=== PATIENT | female | born 1935 | race Caucasian/White ===

== ENCOUNTER 2017-06-26 12:55 | Inpatient (IN) | payer OTHER ==
[~2017-06-26] VITALS: Ht 167.6 cm; Wt 91.9 kg
[~2017-06-26 12:55] MED LIST: ALPR.25; ASPI325 PO; CLOB.05TC TP; CONEST.625 PO; DICL50ER PO; HYDACE5 PO; LEVSOD200; LOVA40 PO; NAPR220 PO; OXYACE5T PO; PRAM.125 PO
[2017-06-26 13:40] LABS: BASOPHILS ABSOLUTE AUTO 0.01 K/mm3 (0.00-0.23); BASOPHILS PERCENT AUTO 0 % (0-2); EOSINOPHILS ABSOLUTE AUTO 0.05 K/mm3 (0.00-0.68); EOSINOPHILS PERCENT AUTO 1 % (0-6); Hematocrit 37.4 % (33.0-51.0); Hemoglobin 12.7 g/dL (11.5-16.0); IMMATURE GRAN ABSOLUTE AUTO 0.03 K/mm3 (0.00-0.10); IMMATURE GRAN PERCENT AUTO 0 % (0-1); LYMPHOCYTES ABSOLUTE AUTO 0.98 K/mm3 (0.84-5.20); LYMPHOCYTES PERCENT AUTO 11 % (21-46); MONOCYTES ABSOLUTE AUTO 0.35 K/mm3 (0.16-1.47); MONOCYTES PERCENT AUTO 4 % (4-13); Mean Corpuscular HGB 29.2 pg (26.0-34.0); Mean Corpuscular Volume 86 fL (80-100); Mean Platelet Volume 9.9 fL (9.1-12.4); NEUTROPHILS ABSOLUTE AUTO 7.26 K/mm3 (1.96-9.15); NEUTROPHILS PERCENT AUTO 84 % (41-73); Platelet Count 294 K/mm3 (150-400); RDW Coefficient Variation 15.2 % (11.7-14.2); RDW Standard Deviation 48.2 fL (35.1-46.3); Red Blood Cell Count 4.35 M/mm3 (3.80-5.20); White Blood Cell Count 8.68 K/mm3 (4.00-11.30)
[2017-06-26] MEDS ORDERED: LEVSOD100 PO (13:47)
[2017-06-26] MEDS ORDERED: GABA300 PO (13:47)
[2017-06-26] MEDS ORDERED: SIMV40 PO (13:47)
[2017-06-26] MEDS ORDERED: ASPI81CH PO (13:47)
[2017-06-26] MEDS ORDERED: Omeprazole20 M1 PO (13:47)
[2017-06-26] MEDS ORDERED: CHOL10002 PO (13:47)
[2017-06-26] MEDS ORDERED: VITAMIN B122500 MCG PO (13:48)
[2017-06-26] MEDS ORDERED: ONE DAILY COMP1 EACH PO (13:48)
[2017-06-26] MEDS ORDERED: Lasix40 MG PO (13:49)
[2017-06-26 13:50] LABS: Source, Urine Clean Catch
[2017-06-26] MEDS ORDERED: NABU500 PO (13:50)
[2017-06-26] MEDS ORDERED: CYCL10 PO (13:50)
[2017-06-26] MEDS ORDERED: BENZ100A (13:51)
[2017-06-26] MEDS ORDERED: ALBU90OI6 (13:51)
[2017-06-26] MEDS ORDERED: PRED10 (13:52)
[2017-06-26] MEDS ORDERED: Augmentin 875-1 EACH PO (13:52)
[2017-06-26 13:59] LABS: Alanine Aminotransfer (ALT/SGP 24 U/L (12-78); Albumin, Blood 3.4 g/dL (3.4-5.0); Alk Phos 90 U/L (50-136); Anion Gap 6 mmol/L (6-16); Aspartate Aminotrans (AST/SGOT 24 U/L (12-37); Bilirubin, Total 0.6 mg/dL (0.1-1.0); Blood Urea Nitrogen 13 mg/dL (8-24); CO2, Blood 31 mmol/L (21-32); Calcium, Blood 8.4 mg/dL (8.5-10.1); Chloride, Blood 107 mmol/L (98-108); Creatinine, Blood 0.76 mg/dL (0.40-1.00); Globulin, Blood 3.3 g/dL (2.2-4.0); Glomerular Filtration Rate >60 (60-); Glucose, Blood 107 mg/dL (70-99); Potassium, Blood 2.9 mmol/L (3.5-5.5); Sodium, Blood 144 mmol/L (136-145); Total Protein, Blood 6.7 g/dL (6.4-8.2)
[2017-06-26 14:07] LABS: Appearance, Urine Clear (Clear); Bilirubin, Urine Neg (Neg); Blood, Urine Neg (Neg); Color, Urine Yellow (P-Yellow); Glucose Qualitative, Urine Neg (Neg); Ketones, Urine Neg (Neg); Leukocyte Esterase, Urine Neg (Neg); Nitrite, Urine Neg (Neg); Protein, Urine Neg (Neg); Urobilinogen, Urine 1+ (Normal)
[2017-06-26] MEDS ORDERED: OXYB5 PO (14:07)
[2017-06-26 14:15] LABS: Troponin I <0.015 ng/mL (0.000-0.040)
[2017-06-26 19:25] LABS: Calcium, Ionized (POC) 1.04 mmol/L (1.10-1.46); Chloride (POC) 105 mmol/L (98-108); Creatinine (POC) 0.7 mg/dL (0.6-1.0); Glucose (ISTAT POC) 117 mg/dL (70-99); Hemoglobin (POC) 12.6 g/dL (12.0-16.0); Potassium (POC) 3.4 mmol/L (3.5-5.5); Sodium (POC) 142 mmol/L (135-148); Total CO2 (POC) 28 mmol/L (21-32)
[2017-06-27] MEDS ORDERED: ACET500 PO (02:41)
[2017-06-27] MEDS ORDERED: DIPH50 PO (02:42)
[2017-06-27] MEDS ORDERED: BISA5EC PO (02:44)
[2017-06-27] MEDS ORDERED: Xanax0.5 MG PO (02:50)
[2017-06-27 04:48] LABS: Hematocrit 30.5 % (33.0-51.0); Hemoglobin 10.2 g/dL (11.5-16.0)
[2017-06-27 05:09] LABS: Anion Gap 7 mmol/L (6-16); Blood Urea Nitrogen 15 mg/dL (8-24); Bun/Creatinine Ratio 20.6 (12.0-20.0); CO2, Blood 29 mmol/L (21-32); Calcium, Blood 7.7 mg/dL (8.5-10.1); Chloride, Blood 109 mmol/L (98-108); Creatinine, Blood 0.73 mg/dL (0.40-1.00); Glomerular Filtration Rate >60 (60-); Glucose, Blood 85 mg/dL (70-99); Magnesium, Blood 1.8 mg/dL (1.6-2.4); Potassium, Blood 3.2 mmol/L (3.5-5.5); Sodium, Blood 145 mmol/L (136-145)
[2017-06-27 22:11] LABS: Influenza A Negative (NEGATIVE); Influenza B Negative (NEGATIVE)
[2017-06-28] MEDS ORDERED: CYCL10 PO (14:03)
[2017-06-28] MEDS ORDERED: LEVFLO500 PO (14:05)
[2017-06-28] MEDS ORDERED: POTCHL20ER PO (14:06)
[2017-06-28] MEDS ORDERED: OXYC5 PO (14:07)
[2017-06-28] MEDS ORDERED: ACET325 PO (14:14)
[2018-02-15] MEDS ORDERED: SIMV40 PO (10:56)
[2018-02-15] MEDS ORDERED: ALPR.5 PO (10:56)
[2018-02-15] MEDS ORDERED: Nitrostat0.4 MG SL (10:57)
[2018-02-15] MEDS ORDERED: OXYB5 PO (10:57)
[2018-02-15] MEDS ORDERED: Aspirin EC81 MG PO (10:58)
[2018-02-15] MEDS ORDERED: VITAMIN B125000 MCG PO (10:58)
[2018-02-15] MEDS ORDERED: Flonase 0.05% N16 GM (10:59)
[2018-02-15] MEDS ORDERED: HYDPAM50 PO (11:00)
== END 2017-06-28 15:38 | disposition home or self-care (01) | DRG 556 ==
LOC: ER 12:55 → MEDS 19:01 → ENPENDDIS 06-28 13:58 → MEDS 06-28 15:38
PROVIDERS: Emergency Medicine; Family Medicine; Internal Medicine Endocrinology, Diabetes & Metabolism; Physician Assistant
DX: M79.81 Nontraumatic hematoma of soft tissue (principal); I35.0 Nonrheumatic aortic (valve) stenosis; E03.9 Hypothyroidism, unspecified; E78.00 Pure hypercholesterolemia, unspecified; E87.6 Hypokalemia; J45.909 Unspecified asthma, uncomplicated; J06.9 Acute upper respiratory infection, unspecified; T50.2X5A Adverse effect of carbonic-anhydrase inhibitors, benzothiadiazides and other diuretics, initial encounter; Z79.82 Long term (current) use of aspirin
CPT/HCPCS: 36415; 71275; 74174; 76705; 80047; 80048; 80053; 81003; 83690; 83735; 84100; 84484; 85014; 85018; 85025; 87804; 93005; 93010; 94640; 94760; 96365; 96366; 96375; 96376; 99285; C9113; J1170; J2001; J2405; J3480; J7050; Q9967

== ENCOUNTER → 2017-10-12 | Outpatient (CLI) | payer OTHER ==
[~2017-10-12] MED LIST changes: +ACET325 PO; +ACET500 PO; +ALBU90OI6; +ASPI81CH PO; +Augmentin 875-1 EACH PO; +BENZ100A; +BISA5EC PO; +CHOL10002 PO; +CYCL10 PO; +DIPH50 PO; +GABA300 PO; +LEVFLO500 PO; +LEVSOD100 PO; +Lasix40 MG PO; +NABU500 PO; +ONE DAILY COMP1 EACH PO; +OXYB5 PO; +OXYC5 PO; +Omeprazole20 M1 PO; +POTCHL20ER PO; +PRED10; +SIMV40 PO; +VITAMIN B122500 MCG PO; +Xanax0.5 MG PO
== END | disposition home or self-care (01) ==
LOC: LAB EV 16:27 → LAB SHORT 16:27
DX: R19.00 Intra-abdominal and pelvic swelling, mass and lump, unspecified site (principal); R30.0 Dysuria
CPT/HCPCS: 87086

== ENCOUNTER 2017-11-25 06:04 | Emergency (ER) | payer OTHER ==
[~2017-11-25] VITALS: Ht 170.2 cm; Wt 86.2 kg
[2017-11-25] MEDS ORDERED: FURO20 PO (06:41)
[2017-11-25] MEDS ORDERED: Omeprazole20 M1 PO (06:42)
[2017-11-25] MEDS ORDERED: Fludrocortison0.1 MG PO (06:43)
[2017-11-25 07:02] LABS: BASOPHILS ABSOLUTE AUTO 0.04 K/mm3 (0.00-0.23); BASOPHILS PERCENT AUTO 1 % (0-2); EOSINOPHILS ABSOLUTE AUTO 0.28 K/mm3 (0.00-0.68); EOSINOPHILS PERCENT AUTO 5 % (0-6); Hematocrit 34.6 % (33.0-51.0); Hemoglobin 11.5 g/dL (11.5-16.0); IMMATURE GRAN ABSOLUTE AUTO 0.01 K/mm3 (0.00-0.10); IMMATURE GRAN PERCENT AUTO 0 % (0-1); LYMPHOCYTES ABSOLUTE AUTO 1.51 K/mm3 (0.84-5.20); LYMPHOCYTES PERCENT AUTO 28 % (21-46); MONOCYTES ABSOLUTE AUTO 0.67 K/mm3 (0.16-1.47); MONOCYTES PERCENT AUTO 13 % (4-13); Mean Corpuscular HGB 30.1 pg (26.0-34.0); Mean Corpuscular HGB Conc 33.2 g/dL (31.5-36.5); Mean Corpuscular Volume 91 fL (80-100); Mean Platelet Volume 10.6 fL (9.1-12.4); NEUTROPHILS ABSOLUTE AUTO 2.82 K/mm3 (1.96-9.15); NEUTROPHILS PERCENT AUTO 53 % (41-73); Platelet Count 174 K/mm3 (150-400); RDW Coefficient Variation 14.6 % (11.7-14.2); RDW Standard Deviation 49.1 fL (35.1-46.3); Red Blood Cell Count 3.82 M/mm3 (3.80-5.20); White Blood Cell Count 5.33 K/mm3 (4.00-11.30)
[2017-11-25 07:12] LABS: Source, Urine Clean Catch
[2017-11-25 07:15] LABS: Bilirubin, Urine Neg (Neg); Blood, Urine 4+ (Neg); Glucose Qualitative, Urine Neg (Neg); Ketones, Urine Neg (Neg); Leukocyte Esterase, Urine Neg (Neg); Nitrite, Urine Neg (Neg); Protein, Urine Neg (Neg); Urobilinogen, Urine NORM (Normal)
[2017-11-25 07:17] LABS: Appearance, Urine Clear (Clear); Color, Urine Yellow (P-Yellow)
[2017-11-25 07:20] LABS: Alanine Aminotransfer (ALT/SGP 19 U/L (12-78); Albumin, Blood 3.5 g/dL (3.4-5.0); Albumin/Globulin Ratio 1.2 (0.8-1.8); Alk Phos 75 U/L (50-136); Anion Gap 8 mmol/L (6-16); Aspartate Aminotrans (AST/SGOT 25 U/L (12-37); Bilirubin, Total 0.6 mg/dL (0.1-1.0); Blood Urea Nitrogen 18 mg/dL (8-24); Bun/Creatinine Ratio 20.6 (12.0-20.0); CO2, Blood 26 mmol/L (21-32); Calcium, Blood 8.5 mg/dL (8.5-10.1); Chloride, Blood 113 mmol/L (98-108); Creatinine, Blood 0.87 mg/dL (0.40-1.00); Glomerular Filtration Rate >60 (60-); Glucose, Blood 81 mg/dL (70-99); Potassium, Blood 3.8 mmol/L (3.5-5.5); Sodium, Blood 147 mmol/L (136-145); Total Protein, Blood 6.5 g/dL (6.4-8.2)
[2017-11-25 07:30] LABS: Bacteria Not Seen /hpf; Squamous Epithelial Cells Rare /hpf (Few); White Blood Cells, Urine 0-2 /hpf (0-5)
== END 2017-11-25 08:55 | disposition home or self-care (01) ==
LOC: ER 06:04
PROVIDERS: Emergency Medicine
DX: N13.2 Hydronephrosis with renal and ureteral calculous obstruction (principal); E03.9 Hypothyroidism, unspecified; K21.9 Gastro-esophageal reflux disease without esophagitis
CPT/HCPCS: 74176; 80053; 81001; 83690; 85025; 96374; 96375; 96376; 99284; J1885; J2405; J3010

== ENCOUNTER 2018-02-22 13:48 | Day surgery (SDC) | payer OTHER ==
[~2018-02-22] VITALS: Ht 167.6 cm; Wt 85.0 kg
[~2018-02-22 13:48] MED LIST changes: +ALPR.5 PO; +Aspirin EC81 MG PO; +FURO20 PO; +Flonase 0.05% N16 GM; +Fludrocortison0.1 MG PO; +HYDPAM50 PO; +Nitrostat0.4 MG SL; +VITAMIN B125000 MCG PO
== END 2018-02-22 15:45 | disposition home or self-care (01) ==
LOC: ORSCSDS 13:48
PROVIDERS: Surgery
PROC: 0DJD8ZZ Inspection of Lower Intestinal Tract, Via Natural or Artificial Opening Endoscopic (ICD-10-PCS; principal; 2018-02-22 15:00)
DX: Z12.11 Encounter for screening for malignant neoplasm of colon (principal); Z80.3 Family history of malignant neoplasm of breast; E03.9 Hypothyroidism, unspecified; E78.5 Hyperlipidemia, unspecified; L43.9 Lichen planus, unspecified; L30.9 Dermatitis, unspecified; Z79.82 Long term (current) use of aspirin; Z79.899 Other long term (current) drug therapy
CPT/HCPCS: J7120

== ENCOUNTER 2018-03-04 06:20 | Day surgery (SDC) | payer OTHER ==
[~2018-03-04] VITALS: Ht 167.6 cm; Wt 87.9 kg
== END 2018-03-04 10:59 | disposition home or self-care (01) ==
LOC: ORSCSDS 06:20
PROVIDERS: Surgery
PROC: 0YU60JZ Supplement Left Inguinal Region with Synthetic Substitute, Open Approach (ICD-10-PCS; principal; 2018-03-04 08:30)
DX: K40.90 Unilateral inguinal hernia, without obstruction or gangrene, not specified as recurrent (principal); E03.9 Hypothyroidism, unspecified; Z79.899 Other long term (current) drug therapy; Z79.82 Long term (current) use of aspirin; Z99.81 Dependence on supplemental oxygen
CPT/HCPCS: C1781; J0690; J1100; J1885; J2250; J2405; J3010; J7120

== ENCOUNTER 2019-02-23 15:33 | Emergency (ER) | payer OTHER ==
[~2019-02-23] VITALS: Ht 170.2 cm; Wt 94.3 kg
[2019-02-23 16:44] LABS: Source, Urine Clean Catch
[2019-02-23 16:48] LABS: Bilirubin, Urine Neg (Neg); Blood, Urine 1+ (Neg); Glucose Qualitative, Urine Neg (Neg); Ketones, Urine 1+ (Neg); Leukocyte Esterase, Urine 3+ (Neg); Nitrite, Urine Neg (Neg); Protein, Urine 1+ (Neg); Urobilinogen, Urine 1+ (Normal)
[2019-02-23 16:52] LABS: BASOPHILS ABSOLUTE AUTO 0.03 K/mm3 (0.00-0.23); BASOPHILS PERCENT AUTO 1 % (0-2); EOSINOPHILS ABSOLUTE AUTO 0.12 K/mm3 (0.00-0.68); EOSINOPHILS PERCENT AUTO 2 % (0-6); Hematocrit 36.5 % (33.0-51.0); IMMATURE GRAN ABSOLUTE AUTO 0.01 K/mm3 (0.00-0.10); IMMATURE GRAN PERCENT AUTO 0 % (0-1); LYMPHOCYTES ABSOLUTE AUTO 1.28 K/mm3 (0.84-5.20); LYMPHOCYTES PERCENT AUTO 24 % (21-46); MONOCYTES PERCENT AUTO 13 % (4-13); Mean Corpuscular HGB 29.8 pg (26.0-34.0); Mean Corpuscular HGB Conc 32.9 g/dL (31.5-36.5); Mean Corpuscular Volume 91 fL (80-100); Mean Platelet Volume 10.6 fL (9.1-12.4); NEUTROPHILS ABSOLUTE AUTO 3.22 K/mm3 (1.96-9.15); NEUTROPHILS PERCENT AUTO 60 % (41-73); Platelet Count 167 K/mm3 (150-400); RDW Coefficient Variation 13.8 % (11.7-14.2); RDW Standard Deviation 45.5 fL (35.1-46.3); Red Blood Cell Count 4.03 M/mm3 (3.80-5.20); White Blood Cell Count 5.36 K/mm3 (4.00-11.30)
[2019-02-23 17:08] LABS: Appearance, Urine Cloudy (Clear); Color, Urine Yellow (P-Yellow)
[2019-02-23 17:11] LABS: Bacteria Few /hpf; Red Blood Cells, Urine 0-2 /hpf (0-2); Squamous Epithelial Cells Few /hpf (Few)
[2019-02-23 17:22] LABS: Alanine Aminotransfer (ALT/SGP 17 U/L (12-78); Albumin, Blood 3.5 g/dL (3.4-5.0); Albumin/Globulin Ratio 1.2 (0.8-1.8); Alk Phos 82 U/L (50-136); Anion Gap 3 mmol/L (6-16); Aspartate Aminotrans (AST/SGOT 25 U/L (12-37); Bilirubin, Total 0.5 mg/dL (0.1-1.0); Blood Urea Nitrogen 21 mg/dL (8-24); Bun/Creatinine Ratio 22.6 (12.0-20.0); CO2, Blood 29 mmol/L (21-32); Calcium, Blood 8.5 mg/dL (8.5-10.1); Chloride, Blood 107 mmol/L (98-108); Creatinine, Blood 0.93 mg/dL (0.40-1.00); Globulin, Blood 2.9 g/dL (2.2-4.0); Glomerular Filtration Rate >60 (60-); Glucose, Blood 138 mg/dL (70-99); Potassium, Blood 3.4 mmol/L (3.5-5.5); Sodium, Blood 139 mmol/L (136-145); Total Protein, Blood 6.4 g/dL (6.4-8.2); Troponin I <0.015 ng/mL (0.000-0.040)
== END 2019-02-23 19:08 | disposition home or self-care (01) ==
LOC: ER 15:33
PROVIDERS: Emergency Medicine
DX: I35.0 Nonrheumatic aortic (valve) stenosis (principal); I71.2 Thoracic aortic aneurysm, without rupture; I95.1 Orthostatic hypotension; E03.9 Hypothyroidism, unspecified; K21.9 Gastro-esophageal reflux disease without esophagitis; Z88.8 Allergy status to other drugs, medicaments and biological substances; Z91.012 Allergy to eggs; Z88.5 Allergy status to narcotic agent; Z79.899 Other long term (current) drug therapy; Z79.82 Long term (current) use of aspirin
CPT/HCPCS: 36415; 71046; 80053; 81001; 84484; 85025; 87086; 93005; 93010; 99284-25

== ENCOUNTER → 2019-04-17 | Outpatient (CLI) | payer OTHER ==
[2019-04-21 13:07] LABS: DOPAMINE, URINE 80 ug/L (Undefined)
[2019-04-21 18:06] LABS: METANEPHRINE, UR 29 ug/L (Undefined)
== END | disposition home or self-care (01) ==
LOC: LAB 09:30 → LAB SHORT 09:30 → LAB FUT 04-14 07:40
PROVIDERS: Internal Medicine Cardiovascular Disease
DX: I95.1 Orthostatic hypotension (principal)
CPT/HCPCS: 81050; 82384; 83835

== ENCOUNTER 2019-05-16 20:54 | Observation (INO) | payer OTHER ==
[~2019-05-16] VITALS: Ht 170.2 cm; Wt 93.1 kg
[2019-05-16 21:19] LABS: BASOPHILS ABSOLUTE AUTO 0.05 K/mm3 (0.00-0.23); BASOPHILS PERCENT AUTO 1 % (0-2); EOSINOPHILS ABSOLUTE AUTO 0.26 K/mm3 (0.00-0.68); EOSINOPHILS PERCENT AUTO 4 % (0-6); Hematocrit 38.2 % (33.0-51.0); Hemoglobin 12.5 g/dL (11.5-16.0); IMMATURE GRAN ABSOLUTE AUTO 0.03 K/mm3 (0.00-0.10); IMMATURE GRAN PERCENT AUTO 1 % (0-1); LYMPHOCYTES ABSOLUTE AUTO 2.31 K/mm3 (0.84-5.20); LYMPHOCYTES PERCENT AUTO 39 % (21-46); MONOCYTES ABSOLUTE AUTO 0.85 K/mm3 (0.16-1.47); MONOCYTES PERCENT AUTO 14 % (4-13); Mean Corpuscular HGB Conc 32.7 g/dL (31.5-36.5); Mean Corpuscular Volume 95 fL (80-100); Mean Platelet Volume 10.4 fL (9.1-12.4); NEUTROPHILS ABSOLUTE AUTO 2.47 K/mm3 (1.96-9.15); NEUTROPHILS PERCENT AUTO 41 % (41-73); Platelet Count 207 K/mm3 (150-400); RDW Coefficient Variation 13.8 % (11.7-14.2); RDW Standard Deviation 48.5 fL (35.1-46.3); Red Blood Cell Count 4.03 M/mm3 (3.80-5.20); White Blood Cell Count 5.97 K/mm3 (4.00-11.30)
[2019-05-16 21:35] LABS: Anion Gap 5 mmol/L (6-16); Blood Urea Nitrogen 24 mg/dL (8-24); Bun/Creatinine Ratio 24.5 (12.0-20.0); CO2, Blood 27 mmol/L (21-32); Calcium, Blood 8.7 mg/dL (8.5-10.1); Chloride, Blood 109 mmol/L (98-108); Creatinine, Blood 0.98 mg/dL (0.40-1.00); Glomerular Filtration Rate 57 (60-); Glucose, Blood 125 mg/dL (70-99); Potassium, Blood 4.4 mmol/L (3.5-5.5); Sodium, Blood 141 mmol/L (136-145); Troponin I <0.015 ng/mL (0.000-0.040)
[2019-05-16] MEDS ORDERED: FURO40 PO (22:49)
[2019-05-16] MEDS ORDERED: SYNTHROID175 MC1 PO (22:50)
[2019-05-16] MEDS ORDERED: Midodrine HCl10 MG PO (22:53)
[2019-05-17] MEDS ORDERED: MIDO5 PO (01:55)
[2019-05-17] MEDS ORDERED: CETI5 (01:59)
[2019-05-17 05:21] LABS: Anion Gap 7 mmol/L (6-16); Blood Urea Nitrogen 23 mg/dL (8-24); Bun/Creatinine Ratio 29.3 (12.0-20.0); CO2, Blood 23 mmol/L (21-32); Calcium, Blood 8.4 mg/dL (8.5-10.1); Chloride, Blood 112 mmol/L (98-108); Creatinine, Blood 0.78 mg/dL (0.40-1.00); Glomerular Filtration Rate >60 (60-); Glucose, Blood 84 mg/dL (70-99); Potassium, Blood 4.7 mmol/L (3.5-5.5); Sodium, Blood 142 mmol/L (136-145)
--- NOTE | 2019-05-17 06:08 | NUR ---
SHIFT SUMMARY: PT ARRIVED ON MEDICAL FLOOR AT 0115. T/F FROM STRETCHER TO BE WITH SBA. SAT AT EDGE OF BED FOR A MINUTE BEFORE STANDING UP. REPORTED LIGHTHEADEDNESS UPON BOTH SITTING UP AND STANDING. A/0X4. DRESSING ON OCCIPITAL SCALP LACERATION. SMALL AMT OF SANGUINOUS DRAINAGE. WOUND EDGES WELL APPROXIMATED WITH 2 VERA. REPORTED PAIN AT LACERATION SITE, BUT OPTED TO UTILIZE POSITIONING RATHER THAN PRN PAIN MEDS. PERRL, FACIAL SYMMETRY, EQUAL INGOT CAR OPERATOR STRENGTH. CALL LIGHT EXPLAINED AND PLACED WITHIN REACH. BED LOW, BED ALARM ON.
--- NOTE | 2019-05-17 17:54 | NUR ---
SHIFT SUMMARY PATIENT REPORTS HEAD PAINFUL TO TOUCH AND MILD HEADACHE. DECLINES PAIN MEDICATION THIS SHIFT. DENIES NAUSEA AND SHORTNESS OF BREATH. PATIENT WORKED WITH PT TODAY. PATIENT CONTINUES TO EXPERIENCE ORTHOSTATIC HYPOTENSION. PATIENT UP SBA TO BEDSIDE COMMODE FOR SAFETY. PATIENT NOW ON TELEMETRY. CALL LIGHT IN REACH.
[2019-05-18 05:28] LABS: BASOPHILS ABSOLUTE AUTO 0.04 K/mm3 (0.00-0.23); BASOPHILS PERCENT AUTO 1 % (0-2); EOSINOPHILS ABSOLUTE AUTO 0.28 K/mm3 (0.00-0.68); EOSINOPHILS PERCENT AUTO 6 % (0-6); Hematocrit 36.4 % (33.0-51.0); Hemoglobin 11.6 g/dL (11.5-16.0); IMMATURE GRAN ABSOLUTE AUTO 0.01 K/mm3 (0.00-0.10); IMMATURE GRAN PERCENT AUTO 0 % (0-1); LYMPHOCYTES ABSOLUTE AUTO 1.74 K/mm3 (0.84-5.20); LYMPHOCYTES PERCENT AUTO 36 % (21-46); MONOCYTES ABSOLUTE AUTO 0.66 K/mm3 (0.16-1.47); MONOCYTES PERCENT AUTO 14 % (4-13); Mean Corpuscular HGB 29.8 pg (26.0-34.0); Mean Corpuscular HGB Conc 31.9 g/dL (31.5-36.5); Mean Corpuscular Volume 94 fL (80-100); Mean Platelet Volume 10.3 fL (9.1-12.4); NEUTROPHILS ABSOLUTE AUTO 2.06 K/mm3 (1.96-9.15); NEUTROPHILS PERCENT AUTO 43 % (41-73); Platelet Count 180 K/mm3 (150-400); RDW Coefficient Variation 13.7 % (11.7-14.2); RDW Standard Deviation 46.9 fL (35.1-46.3); Red Blood Cell Count 3.89 M/mm3 (3.80-5.20); White Blood Cell Count 4.79 K/mm3 (4.00-11.30)
[2019-05-18 05:53] LABS: Alanine Aminotransfer (ALT/SGP 18 U/L (12-78); Albumin, Blood 3.2 g/dL (3.4-5.0); Albumin/Globulin Ratio 1.1 (0.8-1.8); Alk Phos 70 U/L (50-136); Anion Gap 6 mmol/L (6-16); Aspartate Aminotrans (AST/SGOT 17 U/L (12-37); Bilirubin, Total 0.7 mg/dL (0.1-1.0); Blood Urea Nitrogen 21 mg/dL (8-24); Bun/Creatinine Ratio 27.5 (12.0-20.0); CO2, Blood 24 mmol/L (21-32); Calcium, Blood 8.4 mg/dL (8.5-10.1); Chloride, Blood 110 mmol/L (98-108); Creatinine, Blood 0.76 mg/dL (0.40-1.00); Globulin, Blood 2.8 g/dL (2.2-4.0); Glomerular Filtration Rate >60 (60-); Glucose, Blood 79 mg/dL (70-99); Potassium, Blood 4.4 mmol/L (3.5-5.5); Sodium, Blood 140 mmol/L (136-145); Troponin I <0.015 ng/mL (0.000-0.040)
--- NOTE | 2019-05-18 06:35 | NUR ---
SHIFT SUMMARY PATIENT HAD COMPLAINT OF A HEADACHE FOR WHICH SHE RECEIVED PRN TYLENOL, IT WAS EFFECTIVE FOR THE PAIN. CHANGED THE DRESSING FOR THE OCCIPITAL LACERATION. 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 HER TELEMITRY MONITOR SHOWED HER TO BE IN SINUS RHYTHM. BED IN LOWEST POSITION WITH WHEELS LOCKED. CALL LIGHT AND BELONGINGS WITHIN REACH. REPORT GIVEN TO ONCGATO TAPIA.
[2019-05-18] MEDS ORDERED: ACET325 PO (13:27)
[2019-05-18] MEDS ORDERED: OMEP20ER PO (13:28)
[2019-05-18] MEDS ORDERED: TRAZ50 PO (13:29)
--- NOTE | 2019-05-18 15:12 | NUR ---
DISCHARGE DISCHARGE INSTRUCTIONS, MEDICATION LIST AND FOLLOW UP APPOINTMENTS REVIEWED WITH PT AND HER DAUGHTER. QUESTIONS/CONCERNS ANSWERED. BOTH VERBALLY INDICATED UNDERSTANDING OF ALL INSTRUCITONS RECEIVED. HOME HEALTH TO CONTACT PT/DAUGHTER TO ARRANGE FOLLOW UP TIME. TELE BOX REMOVED AND RETURNED TO PCU. ESCORTED OUT VIA W/C BY WHITNEY
[2019-05-19] MEDS ORDERED: MOTION RELIEF25 MG PO (15:28)
[2019-07-11] MEDS ORDERED: Fludrocortison0.1 MG PO (15:48)
[2019-07-11] MEDS ORDERED: EUTHYROX175 MC1 PO (15:49)
[2019-07-11] MEDS ORDERED: NEURONTIN300 MG PO (15:49)
[2019-07-11] MEDS ORDERED: MOTION RELIEF25 MG PO (17:00)
== END 2019-05-18 15:03 | disposition home health service (06) ==
LOC: ER 20:54 → MEDS 20:55 → ER 05-17 01:07 → MEDS 05-17 01:13
PROVIDERS: Family Medicine; Nurse Practitioner Acute Care; Physician Assistant; ADMIT Family Medicine
PROC: 0HQ0XZZ Repair Scalp Skin, External Approach (ICD-10-PCS; principal; 2019-05-16)
DX: I95.1 Orthostatic hypotension (principal); R79.89 Other specified abnormal findings of blood chemistry; I11.0 Hypertensive heart disease with heart failure; I50.32 Chronic diastolic (congestive) heart failure; I35.0 Nonrheumatic aortic (valve) stenosis; E78.5 Hyperlipidemia, unspecified; E03.9 Hypothyroidism, unspecified; K21.9 Gastro-esophageal reflux disease without esophagitis; G47.30 Sleep apnea, unspecified; N17.9 Acute kidney failure, unspecified; J45.909 Unspecified asthma, uncomplicated; S01.01XA Laceration without foreign body of scalp, initial encounter; X58.XXXA Exposure to other specified factors, initial encounter; Z79.899 Other long term (current) drug therapy; Z88.5 Allergy status to narcotic agent; Z88.8 Allergy status to other drugs, medicaments and biological substances; Z91.012 Allergy to eggs; Z79.82 Long term (current) use of aspirin
CPT/HCPCS: 12001; 36415; 70450; 72125; 73562-LT; 80048; 80053; 80400; 82024; 82533; 84484; 85025; 93005; 93010; 96361; 96374; 97110; 97116; 97162; 97530; 99285-25; A9270; A9270-GY; G0378; J0834; J7030; J7040

== ENCOUNTER 2019-05-19 13:50 | Emergency (ER) | payer OTHER ==
[~2019-05-19] VITALS: Ht 170.2 cm; Wt 95.2 kg
[~2019-05-19 13:50] MED LIST changes: +CETI5; +FURO40 PO; +MIDO5 PO; +Midodrine HCl10 MG PO; +OMEP20ER PO; +SYNTHROID175 MC1 PO; +TRAZ50 PO
[2019-05-19 14:41] LABS: BASOPHILS ABSOLUTE AUTO 0.03 K/mm3 (0.00-0.23); BASOPHILS PERCENT AUTO 1 % (0-2); EOSINOPHILS ABSOLUTE AUTO 0.08 K/mm3 (0.00-0.68); EOSINOPHILS PERCENT AUTO 2 % (0-6); Hematocrit 38.6 % (33.0-51.0); Hemoglobin 12.8 g/dL (11.5-16.0); IMMATURE GRAN ABSOLUTE AUTO 0.01 K/mm3 (0.00-0.10); IMMATURE GRAN PERCENT AUTO 0 % (0-1); LYMPHOCYTES ABSOLUTE AUTO 0.94 K/mm3 (0.84-5.20); LYMPHOCYTES PERCENT AUTO 17 % (21-46); MONOCYTES PERCENT AUTO 9 % (4-13); Mean Corpuscular HGB 30.4 pg (26.0-34.0); Mean Corpuscular HGB Conc 33.2 g/dL (31.5-36.5); Mean Corpuscular Volume 92 fL (80-100); Mean Platelet Volume 10.3 fL (9.1-12.4); NEUTROPHILS ABSOLUTE AUTO 3.91 K/mm3 (1.96-9.15); NEUTROPHILS PERCENT AUTO 72 % (41-73); Platelet Count 194 K/mm3 (150-400); RDW Coefficient Variation 13.3 % (11.7-14.2); RDW Standard Deviation 45.1 fL (35.1-46.3); Red Blood Cell Count 4.21 M/mm3 (3.80-5.20); White Blood Cell Count 5.47 K/mm3 (4.00-11.30)
[2019-05-19 15:12] LABS: Alanine Aminotransfer (ALT/SGP 20 U/L (12-78); Albumin, Blood 3.8 g/dL (3.4-5.0); Albumin/Globulin Ratio 1.1 (0.8-1.8); Alk Phos 80 U/L (50-136); Anion Gap 7 mmol/L (6-16); Aspartate Aminotrans (AST/SGOT 22 U/L (12-37); Bilirubin, Total 0.6 mg/dL (0.1-1.0); Blood Urea Nitrogen 24 mg/dL (8-24); Bun/Creatinine Ratio 31.8 (12.0-20.0); CO2, Blood 23 mmol/L (21-32); Calcium, Blood 8.9 mg/dL (8.5-10.1); Chloride, Blood 106 mmol/L (98-108); Creatinine, Blood 0.75 mg/dL (0.40-1.00); Globulin, Blood 3.4 g/dL (2.2-4.0); Glomerular Filtration Rate >60 (60-); Glucose, Blood 107 mg/dL (70-99); Potassium, Blood 4.2 mmol/L (3.5-5.5); Sodium, Blood 136 mmol/L (136-145); Total Protein, Blood 7.2 g/dL (6.4-8.2); Troponin I <0.015 ng/mL (0.000-0.040)
[2019-05-19] MEDS ORDERED: MOTION RELIEF25 MG PO (15:28)
[2019-07-11] MEDS ORDERED: Fludrocortison0.1 MG PO (15:48)
[2019-07-11] MEDS ORDERED: NEURONTIN300 MG PO (15:49)
[2019-07-11] MEDS ORDERED: EUTHYROX175 MC1 PO (15:49)
[2019-07-11] MEDS ORDERED: MOTION RELIEF25 MG PO (17:00)
== END 2019-05-19 16:43 | disposition home or self-care (01) ==
LOC: ER 13:50
PROVIDERS: Emergency Medicine
DX: R42 Dizziness and giddiness (principal); K21.9 Gastro-esophageal reflux disease without esophagitis; J45.909 Unspecified asthma, uncomplicated
CPT/HCPCS: 70450; 80053; 84484; 85025; 93005; 93010; 96374; 96375; 99284-25; J2060; J2405

== ENCOUNTER 2019-06-13 10:24 | Emergency (ER) | payer OTHER ==
[~2019-06-13] VITALS: Ht 170.2 cm; Wt 94.8 kg
[~2019-06-13 10:24] MED LIST changes: +MOTION RELIEF25 MG PO
[2019-06-13 11:41] LABS: BASOPHILS ABSOLUTE AUTO 0.03 K/mm3 (0.00-0.23); BASOPHILS PERCENT AUTO 1 % (0-2); EOSINOPHILS ABSOLUTE AUTO 0.23 K/mm3 (0.00-0.68); EOSINOPHILS PERCENT AUTO 4 % (0-6); Hematocrit 36.7 % (33.0-51.0); Hemoglobin 12.1 g/dL (11.5-16.0); IMMATURE GRAN ABSOLUTE AUTO 0.02 K/mm3 (0.00-0.10); IMMATURE GRAN PERCENT AUTO 0 % (0-1); LYMPHOCYTES PERCENT AUTO 17 % (21-46); MONOCYTES PERCENT AUTO 12 % (4-13); Mean Corpuscular HGB 30.6 pg (26.0-34.0); Mean Corpuscular Volume 93 fL (80-100); Mean Platelet Volume 10.4 fL (9.1-12.4); NEUTROPHILS ABSOLUTE AUTO 3.86 K/mm3 (1.96-9.15); NEUTROPHILS PERCENT AUTO 66 % (41-73); Platelet Count 164 K/mm3 (150-400); RDW Coefficient Variation 13.3 % (11.7-14.2); RDW Standard Deviation 45.8 fL (35.1-46.3); Red Blood Cell Count 3.96 M/mm3 (3.80-5.20); White Blood Cell Count 5.84 K/mm3 (4.00-11.30)
[2019-06-13 12:03] LABS: Alanine Aminotransfer (ALT/SGP 15 U/L (12-78); Albumin, Blood 3.2 g/dL (3.4-5.0); Albumin/Globulin Ratio 0.9 (0.8-1.8); Alk Phos 75 U/L (50-136); Anion Gap 5 mmol/L (6-16); Aspartate Aminotrans (AST/SGOT 14 U/L (12-37); Bilirubin, Total 0.6 mg/dL (0.1-1.0); Blood Urea Nitrogen 14 mg/dL (8-24); Bun/Creatinine Ratio 17.8 (12.0-20.0); CO2, Blood 26 mmol/L (21-32); Calcium, Blood 8.5 mg/dL (8.5-10.1); Chloride, Blood 111 mmol/L (98-108); Creatinine, Blood 0.79 mg/dL (0.40-1.00); Globulin, Blood 3.4 g/dL (2.2-4.0); Glomerular Filtration Rate >60 (60-); Glucose, Blood 86 mg/dL (70-99); Potassium, Blood 3.7 mmol/L (3.5-5.5); Sodium, Blood 142 mmol/L (136-145); Total Protein, Blood 6.6 g/dL (6.4-8.2); Troponin I <0.015 ng/mL (0.000-0.040)
[2019-07-11] MEDS ORDERED: Fludrocortison0.1 MG PO (15:48)
[2019-07-11] MEDS ORDERED: EUTHYROX175 MC1 PO (15:49)
[2019-07-11] MEDS ORDERED: NEURONTIN300 MG PO (15:49)
[2019-07-11] MEDS ORDERED: MOTION RELIEF25 MG PO (17:00)
== END 2019-06-13 14:56 | disposition home or self-care (01) ==
LOC: ER 10:24
PROVIDERS: Emergency Medicine
DX: R55 Syncope and collapse (principal); M54.5 Low back pain; I11.0 Hypertensive heart disease with heart failure; I50.32 Chronic diastolic (congestive) heart failure; E78.5 Hyperlipidemia, unspecified; E03.9 Hypothyroidism, unspecified; K21.9 Gastro-esophageal reflux disease without esophagitis; Z88.8 Allergy status to other drugs, medicaments and biological substances; Z88.5 Allergy status to narcotic agent; Z91.012 Allergy to eggs; Z79.899 Other long term (current) drug therapy; Z79.82 Long term (current) use of aspirin
CPT/HCPCS: 36415; 72100; 80053; 84484; 85025; 93005; 93010; 96360; 99284-25; J7030

== ENCOUNTER 2021-05-17 23:19 | Emergency (ER) | payer OTHER ==
[~2021-05-17] VITALS: Ht 170.2 cm; Wt 91.6 kg
[~2021-05-17 23:19] MED LIST changes: +EUTHYROX175 MC1 PO; +NEURONTIN300 MG PO
[2021-05-18 00:45] LABS: BASOPHILS ABSOLUTE AUTO 0.04 K/mm3 (0.00-0.23); BASOPHILS PERCENT AUTO 1 % (0-2); EOSINOPHILS ABSOLUTE AUTO 0.17 K/mm3 (0.00-0.68); EOSINOPHILS PERCENT AUTO 4 % (0-6); Hematocrit 35.7 % (33.0-51.0); Hemoglobin 11.8 g/dL (11.5-16.0); IMMATURE GRAN ABSOLUTE AUTO 0.01 K/mm3 (0.00-0.10); IMMATURE GRAN PERCENT AUTO 0 % (0-1); LYMPHOCYTES ABSOLUTE AUTO 1.67 K/mm3 (0.84-5.20); LYMPHOCYTES PERCENT AUTO 38 % (21-46); MONOCYTES ABSOLUTE AUTO 0.66 K/mm3 (0.16-1.47); MONOCYTES PERCENT AUTO 15 % (4-13); Mean Corpuscular HGB 30.7 pg (26.0-34.0); Mean Corpuscular HGB Conc 33.1 g/dL (31.5-36.5); Mean Corpuscular Volume 93 fL (80-100); NEUTROPHILS ABSOLUTE AUTO 1.86 K/mm3 (1.96-9.15); NEUTROPHILS PERCENT AUTO 42 % (41-73); Platelet Count 191 K/mm3 (150-400); RDW Coefficient Variation 14.4 % (11.7-14.2); RDW Standard Deviation 49.7 fL (35.1-46.3); Red Blood Cell Count 3.84 M/mm3 (3.80-5.20); White Blood Cell Count 4.41 K/mm3 (4.00-11.30)
[2021-05-18 00:59] LABS: Alanine Aminotransfer (ALT/SGP 19 U/L (12-78); Albumin, Blood 3.3 g/dL (3.4-5.0); Albumin/Globulin Ratio 1.1 (0.8-1.8); Alk Phos 81 U/L (50-136); Anion Gap 6 mmol/L (6-16); Aspartate Aminotrans (AST/SGOT 20 U/L (12-37); Bilirubin, Total 0.3 mg/dL (0.1-1.0); Blood Urea Nitrogen 21 mg/dL (8-24); Bun/Creatinine Ratio 27.2 (12.0-20.0); CO2, Blood 27 mmol/L (21-32); Calcium, Blood 8.7 mg/dL (8.5-10.1); Chloride, Blood 111 mmol/L (98-108); Creatinine, Blood 0.77 mg/dL (0.40-1.00); Globulin, Blood 2.9 g/dL (2.2-4.0); Glomerular Filtration Rate >60 (60-); Glucose, Blood 90 mg/dL (70-99); Magnesium, Blood 1.7 mg/dL (1.6-2.4); Potassium, Blood 4.1 mmol/L (3.5-5.5); Sodium, Blood 144 mmol/L (136-145); Total Protein, Blood 6.2 g/dL (6.4-8.2); Troponin I <0.015 ng/mL (0.000-0.040)
== END 2021-05-18 03:59 | disposition home or self-care (01) ==
LOC: ER 23:19
PROVIDERS: Emergency Medicine
DX: R07.89 Other chest pain (principal); R53.1 Weakness; I11.0 Hypertensive heart disease with heart failure; I50.32 Chronic diastolic (congestive) heart failure; E78.5 Hyperlipidemia, unspecified; E03.9 Hypothyroidism, unspecified; K21.9 Gastro-esophageal reflux disease without esophagitis; G47.00 Insomnia, unspecified; Z88.8 Allergy status to other drugs, medicaments and biological substances; Z91.012 Allergy to eggs; Z88.5 Allergy status to narcotic agent; Z79.899 Other long term (current) drug therapy; Z79.82 Long term (current) use of aspirin
CPT/HCPCS: 71045; 80053; 83735; 83880; 84145; 84484; 85025; 93005; 93010; 99285-25

== ENCOUNTER → 2021-06-26 | Outpatient (CLI) | payer OTHER | LOC: LAB SHORT 13:18 | DX: D48.5 Neoplasm of uncertain behavior of skin (principal); L82.1 Other seborrheic keratosis | CPT/HCPCS: 88305 ==

== ENCOUNTER → 2021-07-24 | Outpatient (CLI) | payer OTHER ==
[2021-07-29 06:10] LABS: HSV-1 DNA Negative (Negative); HSV-2 DNA Negative (Negative)
== END | disposition home or self-care (01) ==
LOC: LAB SHORT 14:33
PROVIDERS: Dermatology
DX: L98.499 Non-pressure chronic ulcer of skin of other sites with unspecified severity (principal)
CPT/HCPCS: 87529

== ENCOUNTER 2021-09-21 12:52 | Inpatient (IN) | payer OTHER ==
[~2021-09-21] VITALS: Ht 170.2 cm; Wt 91.0 kg
[2021-09-21] MEDS ORDERED: Flonase 0.05% N16 GM (13:07)
[2021-09-21] MEDS ORDERED: OTEZLA30 MG PO (13:07)
[2021-09-21] MEDS ORDERED: ACET325 PO (13:08)
[2021-09-21] MEDS ORDERED: POTA10T PO (13:08)
[2021-09-21] MEDS ORDERED: ALPR1 PO (13:09)
[2021-09-21 13:33] LABS: Alanine Aminotransfer (ALT/SGP 18 U/L (12-78); Albumin, Blood 3.5 g/dL (3.4-5.0); Albumin/Globulin Ratio 1.1 (0.8-1.8); Alk Phos 91 U/L (50-136); Anion Gap 8 mmol/L (6-16); Aspartate Aminotrans (AST/SGOT 17 U/L (12-37); Bilirubin, Total 0.6 mg/dL (0.1-1.0); Blood Urea Nitrogen 13 mg/dL (8-24); Bun/Creatinine Ratio 21.2 (12.0-20.0); CO2, Blood 25 mmol/L (21-32); Calcium, Blood 8.5 mg/dL (8.5-10.1); Chloride, Blood 109 mmol/L (98-108); Creatinine, Blood 0.61 mg/dL (0.40-1.00); Globulin, Blood 3.2 g/dL (2.2-4.0); Glomerular Filtration Rate >60 (60-); Glucose, Blood 93 mg/dL (70-99); Potassium, Blood 3.3 mmol/L (3.5-5.5); Sodium, Blood 142 mmol/L (136-145); Total Protein, Blood 6.7 g/dL (6.4-8.2)
[2021-09-21 13:37] LABS: BASOPHILS ABSOLUTE AUTO 0.04 K/mm3 (0.00-0.23); BASOPHILS PERCENT AUTO 1 % (0-2); EOSINOPHILS PERCENT AUTO 4 % (0-6); Hematocrit 36.9 % (33.0-51.0); Hemoglobin 12.1 g/dL (11.5-16.0); IMMATURE GRAN ABSOLUTE AUTO 0.01 K/mm3 (0.00-0.10); IMMATURE GRAN PERCENT AUTO 0 % (0-1); LYMPHOCYTES ABSOLUTE AUTO 1.48 K/mm3 (0.84-5.20); LYMPHOCYTES PERCENT AUTO 30 % (21-46); MONOCYTES PERCENT AUTO 12 % (4-13); Mean Corpuscular HGB 30.5 pg (26.0-34.0); Mean Corpuscular HGB Conc 32.8 g/dL (31.5-36.5); Mean Corpuscular Volume 93 fL (80-100); Mean Platelet Volume 11.1 fL (9.1-12.4); NEUTROPHILS ABSOLUTE AUTO 2.62 K/mm3 (1.96-9.15); NEUTROPHILS PERCENT AUTO 53 % (41-73); Platelet Count 167 K/mm3 (150-400); Red Blood Cell Count 3.97 M/mm3 (3.80-5.20); White Blood Cell Count 4.95 K/mm3 (4.00-11.30)
[2021-09-21 15:53] LABS: Influenza A, PCR NEGATIVE (NEGATIVE); Influenza B, PCR NEGATIVE (NEGATIVE); Resp Syncytial Virus, PCR NEGATIVE (NEGATIVE); SARS-Cov-2 (COVID-19) PCR, MMC NEGATIVE (NEGATIVE)
[2021-09-21 18:54] LABS: Source, Urine Foley catheter
[2021-09-21 19:03] LABS: Appearance, Urine Clear (Clear); Bilirubin, Urine Neg (Neg); Blood, Urine 1+ (Neg); Color, Urine Yellow (P-Yellow); Glucose Qualitative, Urine Neg (Neg); Ketones, Urine 3+ (Neg); Leukocyte Esterase, Urine Neg (Neg); Nitrite, Urine Neg (Neg); Protein, Urine 1+ (Neg); Urobilinogen, Urine NORM (Normal)
[2021-09-21 19:21] LABS: Bacteria Rare /hpf; Red Blood Cells, Urine 0-2 /hpf (0-2); Squamous Epithelial Cells Rare /hpf (Few); White Blood Cells, Urine 0-2 /hpf (0-5)
--- NOTE | 2021-09-21 19:23 | NUR ---
RECEIVED PT FROM ER VIA [facility] @ 4410. DX-CELIAC ARTERY DISSECTION. ER ATTEMPTED TO TRANSFER PT [employer] FOR INTERVENTION, BUT NO BEDS ARE AVAILABLE AT THIS TIME. PT HAS A VERY EXTENSIVE PAST MEDICAL HISTORY INCLUDING: AFIB, HTN, AORTIC STENOSIS, AORTIC ANEURYSM, AND MURMUR-TO NAME A FEW. PT IS A&OX4-SHE IS [place]. PT REPORTS 7/10 PAIN THAT IS TIGHT AND BAND LIKE FROM MIDSTERNAL CHEST DOWN TO HER ABDOMEN. PT STATES THAT THE PAIN BEGAN SUDDENLY THIS AM AROUND 0930. LUNGS CLEAR AND NO NOTED SOB. PT HAS HX OF SLEEP APNEA FOR WHICH SHE WEARS 2 L N/C @ NOC. CURRENTLY SATS>90% ON RA AND NO NOTED SOB OR COUGH. PT DENIES NAUSEA. ORAL MUCOSA IS VERY DRY. # 18 FR STRICKLAND WITH TEMP PROBE PLACED AND U/A SENT. URINE IS CLEAR, YELLOW. DR. ALONSO HAS BEEN CONSULTED. BRIEF UPDATE GIVEN. SKIN IS PALE AND COOL, BUT NO NOTED BREAKDOWN. PT GAVE VERBAL CONSENT FOR BOTH BLOOD PRODUCTS AND RELEASE OF INFORMATION TO HER DAUGHTER. PT STATES THAT HER DAUGHTER IS POA FOR HEALTH CARE. WHEN ASKED ABOUT CODE STATUS, PT STATES "I DON'T WANT CPR." WHEN ASKED IF PT AWARE THAT WITHOUT CPR, ACLS PROTOCOLS ARE LESS EFFECTIVE, PT STATES "NO, I DID NOT KNOW THAT. I KATIE HAVE TO TALK TO MY DAUGHTER ABOUT THAT. TYPE AND SCREEN DRAWN. REPORT GIVEN TO REGINA RILEY.
--- NOTE | 2021-09-21 19:35 | NUR ---
ASSUMED PT CARE AT 1915 PT RESTING IN BED WITH DAUGHTER AT BEDSIDE. PT IS ALERT AND ORIENTED AND ABLE TO MAKE HER NEEDS KNOWN. SBP'S 140. NSR WITH HR 60-70'S. PT C/O 8/10 CHEST/ABDOMINAL/BACK PAIN THAT IS PRESSURE IN NATURE. DR. ALONSO TO BEDSIDE TO DISCUSS PLAN OF CARE. NEW ORDERS FOR PT TO HAVE A CLEAR LIQUID DIET. CODE STATUS DISCUSSED WITH NEW ORDERS FOR LIMITED CODE, MEDICATIONS ONLY. DR. ALONSO TO REVIEW PT'S HOME MEDICATION, WELL INPUT ORDERS FOR PAIN MANAGEMENT. PT HAS A STRICKLAND CATHETER THAT IS PATENT AND DRAINING TO GRAVITY. CALL LIGHT WITHIN REACH AND PT IS ABLE TO MAKE HER NEEDS KNOWN. SEE SHIFT SUMMARY FOR FURTHER DETAILS
--- NOTE | 2021-09-22 00:30 | NUR ---
CALL TO DR. ALONSO UPDATED REGARDING PT'S PAIN NOT MANAGED BY FENTANYL NOR DILAUDID. ELEVATED SBP'S 170'S. NEW ORDERS TO INCREASE DILAUDID TO 1MG EVERY TWO HOURS NEEDED.
[2021-09-22 03:11] LABS: BASOPHILS ABSOLUTE AUTO 0.04 K/mm3 (0.00-0.23); BASOPHILS PERCENT AUTO 1 % (0-2); EOSINOPHILS ABSOLUTE AUTO 0.13 K/mm3 (0.00-0.68); EOSINOPHILS PERCENT AUTO 2 % (0-6); Hematocrit 33.4 % (33.0-51.0); Hemoglobin 10.8 g/dL (11.5-16.0); IMMATURE GRAN ABSOLUTE AUTO 0.01 K/mm3 (0.00-0.10); IMMATURE GRAN PERCENT AUTO 0 % (0-1); LYMPHOCYTES ABSOLUTE AUTO 1.51 K/mm3 (0.84-5.20); LYMPHOCYTES PERCENT AUTO 24 % (21-46); MONOCYTES ABSOLUTE AUTO 0.76 K/mm3 (0.16-1.47); MONOCYTES PERCENT AUTO 12 % (4-13); Mean Corpuscular HGB 30.6 pg (26.0-34.0); Mean Corpuscular HGB Conc 32.3 g/dL (31.5-36.5); Mean Corpuscular Volume 95 fL (80-100); Mean Platelet Volume 10.8 fL (9.1-12.4); NEUTROPHILS ABSOLUTE AUTO 3.96 K/mm3 (1.96-9.15); NEUTROPHILS PERCENT AUTO 62 % (41-73); Platelet Count 155 K/mm3 (150-400); RDW Coefficient Variation 14.2 % (11.7-14.2); Red Blood Cell Count 3.53 M/mm3 (3.80-5.20); White Blood Cell Count 6.41 K/mm3 (4.00-11.30)
[2021-09-22 03:27] LABS: Anion Gap 3 mmol/L (6-16); Blood Urea Nitrogen 13 mg/dL (8-24); CO2, Blood 27 mmol/L (21-32); Calcium, Blood 8.1 mg/dL (8.5-10.1); Chloride, Blood 111 mmol/L (98-108); Creatinine, Blood 0.57 mg/dL (0.40-1.00); Glomerular Filtration Rate >60 (60-); Glucose, Blood 78 mg/dL (70-99); Magnesium, Blood 1.9 mg/dL (1.6-2.4); Potassium, Blood 3.9 mmol/L (3.5-5.5); Sodium, Blood 141 mmol/L (136-145)
--- NOTE | 2021-09-22 06:25 | NUR ---
END OF SHIFT SUMMARY PT MEDICATED T/O NIGHT WITH DILAUDID PER ORDERS. PT C/O 01/21 BACK/CHEST/ABDOMINAL PAIN; PRESSURE IN NATURE. PT REMAINS ALERT AND ORIENTED AND ABLE TO MAKE HER NEEDS KNOWN. SBP GOAL < 150. PT MEDICATED ONCE WITH LOPRESSOR PER ORDERS WITH MINIMAL EFFECT. BP TENDS TO BE OVER 150 SYSTOLIC WHEN PT IS IN PAIN. PT TRENDED IN 130-140'S SYSTOLIC T/O NIGHT. HEPARIN GTT REMAINS AT 16 UNITS/KG/HR PER PHARMACY CONSULT ORDERS. POWERGLIDE TO LEFT UPPER ARM. 20G TO LEFT AC. PT ABLE TO SHIFT OWN WEIGHT. DECLINED PILLOWS BEING PLACED UNDER HIPS. PT WOULD SLEEP IN INTERVALS T/O NIGHT, BUT NO TRUE RESTFUL SLEEP. PT HAS BEEN CALM AND COOPERATIVE ALL SHIFT AND VERY UNDERSTANDING REGARDING THE NEED TO TRANSFER TO [facility]. WILL CONTINUE TO MONITOR UNTIL REPORT IS HANDED OFF TO ONCOMING RN.
--- NOTE | 2021-09-22 08:15 | NUR ---
INITIAL ASSESSMENT PATIENT ALERT AND ORIENTED X 4, AFEBRILE. PATIENT REPORTS FEELING SLIGHTLY LIGHT-HEADED. PATIENT WEAK BUT ABLE TO MOVE ALL EXTREMITIES. PATIENT GIVEN PRN PAIN MEDICATION FOR COMPLAINTS OF PAIN AND TIGHTNESS IN CHEST, BACK AND ABDOMEN. LUNGS CLEAR THROUGHOUT. PATIENT WEARS 2 L NC AT HS. PATIENT ON RA AT THIS TIME AND IS SATTING 90% AND GREATER. PATIENT IN SR, HR IN THE 60S. MURMUR NOTED. SBP 160S TO 120S AFTER PAIN MED ADMINISTRATION. ABDOMEN MILDLY DISTENDED, SOFT, WITH HYPERACTIVE BOWEL SOUNDS NOTED. STRICKLAND IN PLACE DRAINING DARK YELLOW COLORED URINE. SKIN FRAGILE WITH SCATTERED BRUISES. 1+ EDEMA NOTED TO BLES. HEPARIN INFUSING AT 13 UNITS/ KG/ HOUR. BED LOW, CALL LIGHT IN REACH. WILL CONTINUE TO MONITOR T/O SHIFT.
--- NOTE | 2021-09-22 12:30 | NUR ---
TEMP OF 99.4 DEGREES FAHRENHEIT. HR 60S TO 70S. SBP IN THE 120S. DENIES PAIN AT THIS TIME. NO OTHER ACUTE CHANGES TO NOTE ON AT THIS TIME. WILL CONTINUE TO MONITOR.
--- NOTE | 2021-09-22 13:30 | NUR ---
Initial palliative care consult: Tate is an 86 year old with a history of a thoracic aortic aneurysm, HTN, chronic diastolic heart failure, GERD, osteopenia, compression fracture of T7, HLD, hypothyroidism, spinal stenosis, and peripheral neuropathy. 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 Her dtr, Holli, is at the bedside during the visit. Tate states she is waiting for a bed to become available in [place] so that she can be transferred up to the hospital to see the surgeon re: celiac artery dissection. She states she has some back pain which she rates 5-6/10 and some nausea after eating her clear liquid diet. She reports the nausea is constant at times although it worsened some after lunch. Notified nursing who plans to treat nausea and pain per EMAR. Dr. 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 No changes in POC at this time, awaiting an available bed for transfer. Tate states the medications she gets for pain do help alleviate most of the discomfort, however they wear off and the she becomes painful again. Encouraged her that she needs to request the medications, that they are prn, not scheduled. She voiced understanding. Most of this visit was therapeutic in nature. Tate stated that she was hoping to go to [place] soon and have this all behind her. Allowed Tate and her dtr to express their feelings and to tell stories about themselves and their families. Tate stated at the end of the visit that she enjoyed the distraction. Tate's code status at this time is limited which is current wish. PC to remain avialable as needed. Nursing voices no concerns at this time.
--- NOTE | 2021-09-22 16:00 | NUR ---
PATIENT HAS TEMP OF 99.4 DEGREES FAHRENHEIT. PATIENT CONTINUES TO REFUSE FAN AND DOES NOT WANT 5 BLANKETS TAKEN OFF OF HER. HR 49 TO 60S. SBP LOW 100S TO 120S. PATIENT CONTINUES TO RECEIVE PRN PAIN MEDICATIONS FOR COMPLAINTS OF 7/10 PAIN IN ABDOMEN/ CHEST/ BACK. DAUGHTER AT BEDSIDE. WILL CONTINUE TO MONITOR.
--- NOTE | 2021-09-22 18:55 | NUR ---
SHIFT SUMMARY PATIENT REMAINED ALERT AND ORIENTED X 4, PLEASANT AND COOPERATIVE. PATIENT HAD TMAX OF 100.0 DEGREES FAHRENHEIT. PATIENT CONTINUED TO RECEIVE PRN DILAUDID FOR COMPLAINTS OF PAIN AND TIGHTNESS IN CHEST, BACK AND ABDOMEN. PATIENT ALSO RECEIVED PRN TYLENOL OT FOR COMPLAINTS OF HEADACHE. PATIENT REMAINED ON RA WHILE AWAKE AND ON 2 L NC WHILE SLEEPING. PATIENT REMAINED SB TO SR, HR 49 TO 70S. SBP 90S TO 160S. SCHEDULED LOPRESSOR STARTED TODAY. NO BM THIS SHIFT. PATIENT REMAINED ON CLEAR LIQUID DIET. PATIENT RECEIVED ZOFRAN AND REGLAN BOTH ONCE FOR COMPLAINTS OF NAUSEA. STRICKLAND DRAINED 395 MLS OF DARK YELLOW COLORED URINE. NO CHANGES TO SKIN NOTED. DID NOTE VULVA TO BE REDDENED AND FOUL SMELLING; SCHEDULED POWDER ORDERED. HEPARIN REMAINED INFUSING AT 13 UNITS/ KG/ HOUR. PATIENT REFUSED BED BATH THIS SHIFT. [facility] CALLED SHORT TIME AGO AND CONFIRMED THAT PATIENT HAS A BED THERE. REPORT HAS BEEN GIVEN TO ASSUMING INBOUND CALL CENTER REPRESENTATIVE NURSE.
--- NOTE | 2021-09-22 20:00 | NUR ---
ASSUMED CARE OF PT AT 1900 PATIENT AWAKE TALKING TO FAMILY AT SHIFT CHANGE, DAUGHTER AND GRANDDAUGHTER AT BEDSIDE, A&O X4. SPO2 >92 ON RA. AFEBRILE. HR 70S, DROPPED ONCE TO 40S DURING ASSESSMENT BUT RECOVERED QUICKLY, SYSTOLIC IN 140S TO 150S, GAVE SCHEDULED METOPROLOL, MURMUR NOTED ON EXAM. NO NAUSEA ON ASSESSMENT. STRICKLAND IN PLACE AND DRAINING TO GRAVITY. HEPARIN INFUSING AT 13U/KG/HR. SEE SHIFT ASSESSMENT FOR FULL ASSESSMENT. PLAN FOR TRANSFER TO [facility]. PATIENT IS NOT EXPERIENCING PAIN ON ASSESSMENT.
--- NOTE | 2021-09-22 21:00 | NUR ---
TRANSFER TO [facility] CALLED [facility] REGINA MARQUEZ AT 2030 TO GIVE REPORT. REACH ARRIVED SHORTLY AFTER TO TRANSFER PT. PT LEFT AT 2100 WITH [facility], HEPARIN CONT TO INFUSE AT 13UNITS/KG/HR, PUMP NUMBER [id number] SENT WITH [facility]. BELONGINGS SENT WITH FAMILY. PRN DILAUDID GIVEN BEFORE TRANSFER TO [facility]. PAPERWORK SENT WITH [facility].
== END 2021-09-22 21:00 | disposition short-term general hospital (02) | DRG 300 ==
LOC: ER 12:52 → ICUW 17:22
PROVIDERS: Emergency Medicine; Internal Medicine Critical Care Medicine; ADMIT Internal Medicine
DX: I77.79 Dissection of other specified artery (principal); I50.32 Chronic diastolic (congestive) heart failure; I11.0 Hypertensive heart disease with heart failure; M19.90 Unspecified osteoarthritis, unspecified site; E03.9 Hypothyroidism, unspecified; K21.9 Gastro-esophageal reflux disease without esophagitis; G47.00 Insomnia, unspecified; Z88.5 Allergy status to narcotic agent; Z20.822 Contact with and (suspected) exposure to COVID-19; Z91.012 Allergy to eggs; Z88.8 Allergy status to other drugs, medicaments and biological substances; Z79.899 Other long term (current) drug therapy; Z98.890 Other specified postprocedural states; Z79.82 Long term (current) use of aspirin; E87.6 Hypokalemia
CPT/HCPCS: 0241U; 36415; 51702; 71275; 80048; 80053; 81001; 83735; 84484; 85025; 85520; 86850; 86900; 86901; 93005; 93010; 96365; 96366; 96375; 96376; 99285-25; A9270; C1751; J1170; J1644; J2405; J2765; J3010; J7030; Q9967